=== PATIENT | male | born 2005 | race African-American/Black ===

== ENCOUNTER 2023-07-31 12:33 | Emergency (ER) | payer OTHER, SELFPAY ==
[2023-07-31 12:36] VITALS: BP 133/64; PULSE 86; RESP 18; TEMP 36.8; O2SAT 99
[2023-07-31 13:10] LABS: Eosinophils Absolute Auto 0.1 K/mm3 (0-0.3); Hematocrit 40.1 % (42.0-52.0); Hemoglobin 13.2 g/dL (14.0-18.0); Lymphocytes Percent Auto 36.4 % (18.3-44.2); Mean Corpuscular HGB Conc 32.9 g/dl (32-36); Mean Corpuscular Hemoglobin 27.4 pg (26-34); Mean Corpuscular Volume 83.2 fl (80-100); Monocytes Absolute Auto 0.3 K/mm3 (0.1-0.6); Monocytes Percent Auto 9.3 % (2.6-8.5); Neutrophils Absolute Auto 1.5 K/mm3 (1.3-6.7); Neutrophils Percent Auto 49.3 % (45.5-73.1); Platelet Count Result 236 k/mm3 (150-375); Red Blood Count 4.82 M/mm3 (4.6-6.20); Red Cell Distribution Width 12.3 % (11.5-14.5)
[2023-07-31 13:20] LABS: Alanine Aminotransferase 20 U/L (6-50); Albumin Level 4.6 g/dL (3.7-5.6); Alkaline Phosphatase 37 U/L (58-237); Anion Gap 8 mmol/L (8-16); Aspartate Amino Transferase 27 U/L (17-59); Bilirubin,Total 0.8 mg/dL (0.2-1.3); Blood Urea Nitrogen 8 mg/dL (8-21); Calcium 9.5 mg/dL (8.9-10.7); Carbon Dioxide 28 mmol/L (22-30); Chloride 104 mmol/L (98-107); Estimated CRCL calculation 119 ml/min; Estimated Glomerular Filt Rate > 60; Glucose 87 mg/dL (65-110); Potassium 4.1 mmol/L (3.4-5.0); Sodium 140 mmol/L (134-143)
--- NOTE | 2023-07-31 13:22 | ED.GENADULT ---
HPI - General Adult General Chief complaint: Unspecified Stated complaint: headache, fatigue, body aches, 1 week ago Time Seen by Provider: 07/31/23 12:52 History of Present Illness HPI narrative: Sebastián Cisse is a 17 y/o male who presents today with reports of having a physical with a PCP at [facility] about a week ago due to having some generalized fatigue, he was intentionally trying to lose weight but now he feels like he is losing weight without trying. He states that he had labs done at his appointment a week ago and they are sending him to a business continuity analyst because his WBC is low and he is worried if he has an infection. He denies chest pain/ cough/ shortness of breath/ abdominal pain / nausea/ vomiting/ fevers / chills Related Data Allergies Allergy/AdvReac Type Severity Reaction Status Date / Time No Known Allergies Allergy Verified 07/31/23 12:35 Review of Systems Review of Systems: CONSTITUTIONAL: Denies fever, chills, or sweats. EYES: Denies visual changes, redness, or discharge. ENT: Denies rhinorrhea, congestion, sore throat, or otalgia. CARDIOVASCULAR: Denies chest pain, palpitations, or edema. RESPIRATORY: Denies cough or dyspnea. GASTROINTESTINAL: Denies abdominal pain, nausea, vomiting, or diarrhea. GENITOURINARY: Denies dysuria or hematuria. SKIN: Denies rash or itching. MUSCULOSKELETAL: Denies back pain, joint pain, or myalgia. NEUROLOGIC: Denies headache, numbness, dizziness, or weakness. PSYCHIATRIC: Denies anxiety or depression. Exam Narrative: GENERAL: Well-appearing, well-nourished, and in no acute distress. HEAD: Normocephalic, atraumatic. EYES: PERRLA and EOMI. ENT: Nares clear, no rhinorrhea or epistaxis. Mucous membranes moist. Oropharynx without tonsillar hypertrophy exudate or other lesions. Bilateral TMs pearly humphrey nonbulging NECK: Supple. No adenopathy or masses. No carotid bruits or JVD CHEST: Clear to auscultation. No respiratory distress. No wheezes rales or rhonchi HEART: Regular rate and rhythm. No murmur heard. Normal peripheral pulses. ABDOMEN: Soft, nontender, nondistended, normal active bowel sounds. EXTREMITIES: Normal range of motion. No edema. SKIN: Warm, dry, no rash. NEURO: No focal deficits. Alert and oriented x3. PSYCH: Normal mood and affect. Course Vital Signs Vital signs: Vital Signs Temperature 36.8 C 07/31/23 12:36 Pulse Rate 86 07/31/23 12:36 Respiratory Rate 18 07/31/23 12:36 Blood Pressure 133/64 07/31/23 12:36 Pulse Oximetry 99 07/31/23 12:36 Oxygen Delivery Room Air 07/31/23 12:36 Temperature 36.8 C 07/31/23 12:36 Pulse Rate 86 07/31/23 12:36 Respiratory Rate 18 07/31/23 12:36 Blood Pressure 133/64 07/31/23 12:36 Pulse Oximetry 99 07/31/23 12:36 Oxygen Delivery Room Air 07/31/23 12:36 Medical Decision Making MDM Narrative Medical decision making narrative: PE is negative for any acute findings. Patient has an appointment with hematology on August 16, however will make sure he isn't severely anemic and make sure there isn't evidence of acute infection explained to pt that we can check a couple basic labs and if they are stable he will need to continue to follow up with hematology as scheduled. Patient agrees with this plan and denies any other concerns/ complaints/ denies any other questions. Labs are stable, pt showed me his lab results from his PCP on his phone and the results here are quite similar to the labs from his PCP office. Updated pt on the results and encouraged him to continue to follow up with hematology as scheduled Differential Diagnosis Differential Diagnosis: acute infection/ anemia/ pancytopenia / dehydration/ Medical Records Medical records reviewed: Yes I reviewed the external patient's medical records. Vital Signs Vital Signs: Vital Signs Temperature 36.8 C 07/31/23 12:36 Pulse Rate 86 07/31/23 12:36 Respiratory Rate 18 07/31/23 12:3
== END 2023-07-31 14:17 | disposition home or self-care (01) ==
PROVIDERS: Emergency Medicine; Emergency Provider Nurse Practitioner Family
DX: Z04.89 Encounter for examination and observation for other specified reasons (principal)
CPT/HCPCS: 36415; 80053; 85025; 99283